=== PATIENT | female | born 2000 | race Caucasian/White ===

== ENCOUNTER 2022-09-13 22:05 | Emergency (ER) | payer BC, SELFPAY ==
[2022-09-13 22:25] VITALS: BP 159/95; PULSE 90; RESP 18; TEMP 36.9; O2SAT 99
--- NOTE | 2022-09-13 22:48 | ED_ITS ---
HPI - Wound/Laceration General Time Seen by Provider: 22:48 Date Seen: 09/13/22 Chief Complaint: Laceration/Wound Stated Complaint: L knee laceration Time Seen by Provider: 09/13/22 22:48 Source: patient and RN notes reviewed Mode of arrival: ambulatory Limitations: no limitations History of Present Illness HPI narrative: Patient accidentally tripped on metal bleachers [id number] and went down on her left knee. She cut the knee open. Bleeding is controlled at this time. She is unsure of her last tetanus. Nothing else was injured. She thinks that this may need stitches. This happened just prior to arrival. Place: outdoors Context: accidental Related Data Allergies Allergy/AdvReac Type Severity Reaction Status Date / Time No Known Drug Allergies Allergy Verified 09/13/22 22:25 Review of Systems Narrative: As per HPI PFSH PFSH Social History Smoking Status: Never smoker Non-prescribed substance use: denies use service: No Exam Const: Vital Signs, click to edit/add: Vital Signs - 24 hr 09/13/22 22:25 Temperature 98.5 F Pulse Rate [Left P ulse Oximeter] 90 Respiratory Rate 18 Blood Pressure [Ri ght Upper Arm] 159/95 H Pulse Oximetry 99 Oxygen Delivery Me thod Room Air Documenting provider has reviewed patient's vital signs: yes Other: 22-year-old female is alert interactive no apparent distress, ambulatory in the ED of her own accord. She has a 2 cm linear horizontally situated laceration just over the anterior knee area but below the patella. It is into the subcutaneous tissue, not actively bleeding. It does not extend beyond subcutaneous tissue. Given the nature of this being over the knee, does open with movement and bending. Have reviewed that I recommend repair with stitches. Course Course Hospital Course: Plan on repairing with sutures, check tetanus status. Reevaluation(s) Time of Reevaluation #1: 23:12 Reevaluation #1: Nursing staff found patient's tetanus to be up-to-date in 2017. Vital Signs Vital signs: Initial Vital Signs Temperature 98.5 F 09/13/22 22:25 Temperature Source Temporal Artery Scan 09/13/22 22:25 Pulse Rate 90 09/13/22 22:25 Pulse Rhythm Regular 09/13/22 22:25 Respiratory Rate 18 09/13/22 22:25 Blood Pressure 159/95 H 09/13/22 22:25 Blood Pressure Mean 116 H 09/13/22 22:25 Blood Pressure Position Sitting 09/13/22 22:25 Pulse Oximetry 99 09/13/22 22:25 Oxygen Delivery Method Room Air 09/13/22 22:25 Vital Signs Temperature 98.5 F 09/13/22 22:25 Pulse Rate 90 09/13/22 22:25 Respiratory Rate 18 09/13/22 22:25 Blood Pressure 159/95 H 09/13/22 22:25 Pulse Oximetry 99 09/13/22 22:25 Oxygen Delivery Method Room Air 09/13/22 22:25 Temperature 98.5 F 09/13/22 22:25 Pulse Rate 90 09/13/22 22:25 Respiratory Rate 18 09/13/22 22:25 Blood Pressure 159/95 H 09/13/22 22:25 Pulse Oximetry 99 09/13/22 22:25 Oxygen Delivery Method Room Air 09/13/22 22:25 Discharge Plan Discharge Clinical Impression: Laceration Patient Disposition: Home, Self-Care Condition: Stable Instructions: Care For Your Stitches (ED), Laceration (ED) Additional Instructions: Use bacitracin and bandages to keep this wound clean and not exposed well in public. May shower as usual. Need to schedule clinic appointment in about 10- 14 days to assess the wound for suture removal. Watch for infection, if you have any concerns, please seek re-evaluation. Tetanus is up-to-date, given in 2017 per records. Stand Alone Forms: [facility] Info Instructions Procedures Laceration Laceration 1: Pre procedure diagnosis: Laceration over anterior knee area Post procedure diagnosis: Same Site marking: not applicable Name of person performing procedure: Monique Eduardo Site: lower extremity Side (If applicable): left Size (cm): 2 Description: linear Depth: simple, single layer Local Anesthetic: lidocaine 1% and with epi Amount of anesthesia used (mL): 5 Pre-repair: wound explored, irrigated extensively and deep structures intact Skin layer closed with: other (Ethilon) Size (cm): 3-0 Number of sutures: 5 Technique: simple, interrupted Wound cleansing: soap Estimated blood loss (if any): none Conclusion: patient tolerated procedure
--- NOTE | 2022-09-13 23:23 | ED.NURSE ---
bacitracin and band aid applied.
== END 2022-09-13 23:23 | disposition home or self-care (01) ==
LOC: ED 23:20
PROVIDERS: Emergency Provider Family Medicine; PCP Family Medicine
DX: S81.012A Laceration without foreign body, left knee, initial encounter (principal); W10.8XXA Fall (on) (from) other stairs and steps, initial encounter; Y93.01 Activity, walking, marching and hiking
CPT/HCPCS: 12001; 99283; 99284